=== PATIENT | male | born 1930 | race Caucasian/White ===

== ENCOUNTER 2020-05-14 16:04 | Inpatient (IN) | payer MEDICARE, OTHER ==
[~2020-05-14] VITALS: Ht 165.1 cm; Wt 67.8 kg
[2020-05-14 16:43] LABS: BASOPHILS % (AUTO) 0.3 % (0.0-5.0); EOSINOPHILS % (AUTO) 0.2 % (0.0-8.0); HEMATOCRIT 41.2 % (42-54); LYMPHOCYTES % (AUTO) 19.9 % (21.0-51.0); MEAN CORPUSCULAR HEMOGLOBIN 29.3 pg (27.0-33.0); MEAN CORPUSCULAR HGB CONC 32.5 g/dL (32.0-36.0); MONOCYTES % (AUTO) 5.8 % (3.0-13.0); NEUTROPHILS % (AUTO) 73.5 % (40.0-77.0); PLATELET COUNT (AUTO) 233 K/uL (130-400); RED BLOOD CELL COUNT(AUTO) 4.58 MIL/uL (4.50-6.20); RED CELL DISTRIBUTION WIDTH 14.3 % (11.0-15.5); WHITE BLOOD COUNT (AUTO) 5.8 K/uL (4.8-10.8)
[2020-05-14 17:03] LABS: INR 1.06 (0.85-1.15); PROTHROMBIN TIME 11.3 SEC (9.6-11.6)
[2020-05-14 17:04] LABS: PARTIAL THROMBOPLASTIN TIME 36.5 SEC (26.3-35.5)
[2020-05-14 17:10] LABS: CREATININE 2.1 mg/dL (0.5-1.5); POTASSIUM 4.7 mmol/L (3.5-5.1)
[2020-05-14 17:15] LABS: ALBUMIN 3.6 g/dL (3.5-5.0); BILIRUBIN,TOTAL 0.2 mg/dL (0.2-1.0); TOTAL PROTEIN, SERUM 7.9 g/dL (6.0-8.3)
[2020-05-14 20:28] LABS: APPEARANCE,URINE Clear (CLEAR); BILIRUBIN,URINE Negative (NEGATIVE); COLOR,URINE Yellow (YELLOW); GLUCOSE, URINE (UA) Negative (NEGATIVE); KETONES,URINE Negative (NEGATIVE); LEUKOCYTE ESTERASE ,URINE Negative (NEGATIVE); NITRATE,URINE Negative (NEGATIVE); OCCULT BLOOD,URINE Negative (NEGATIVE); PROTEIN,URINE POS 1+ mg/dL (NEGATIVE); UROBILINOGEN,URINE 0.2 mg/dL (0.2-1.0)
[2020-05-14] MEDS ORDERED: LACTATED RINGERS 1000ML 1,000 ML IV SCH (20:30)
[2020-05-14] MEDS ORDERED: LACTULOSE 20 GM/30 ML UDCUP PO PRN (20:30)
[2020-05-14] MEDS ORDERED: NITROGLYCERIN 0.4 MG SL TAB SL PRN (20:30)
[2020-05-14] MEDS ORDERED: DIPHENHYDRAMINE HCL 25 MG CAPSULE PO PRN (20:30)
[2020-05-14] MEDS ORDERED: ACETAMINOPHEN 325 MG TAB PO PRN ×2 (20:30)
[2020-05-14] MEDS ORDERED: ONDANSETRON HCL 4 MG/2 ML VIAL IV PRN (20:30)
[2020-05-14] MEDS ORDERED: MAG HYDROX/AL HYDROX/SIMETH ES 30 ML SUSP UDCUP PO PRN (20:30)
[2020-05-14] MEDS ORDERED: GUAIFENESIN-DM 200/20 MG 10 ML PO PRN (20:30)
[2020-05-14] MEDS ORDERED: CEFTRIAXONE SODIUM 1 GM IVP SCH (20:45)
[2020-05-14] MEDS ORDERED: DEXAMETHASONE SOD PHOSPHATE 4 MG/ML 1ML VIAL IVP SCH (20:45)
[2020-05-14] MEDS ORDERED: FAMOTIDINE/PF 20 MG/2 ML VIAL IV SCH (21:00)
[2020-05-14] MEDS ORDERED: DOXYCYCLINE HYCLATE 100 MG TABLET PO SCH (21:00)
[2020-05-14 21:12] LABS: BACTERIA,URINE Rare /HPF (None Seen); RBC,URINE None Seen /HPF (0-1); WBC,URINE 0-1 /HPF (0-1)
[2020-05-14 21:13] LABS: SQUAMOUS EPITHELIAL CELL,UR None Seen /HPF (0-2)
[2020-05-15] MEDS ORDERED: DOXYCYCLINE HYCLATE 100 MG TABLET PO ONE (06:05)
[2020-05-15] MEDS ORDERED: CEFTRIAXONE SODIUM 1 GM ONE (06:06)
[2020-05-15] MEDS ORDERED: DEXAMETHASONE SOD PHOSPHATE 4 MG/ML 1ML VIAL ONE (06:06)
[2020-05-15 06:15] LABS: BASOPHILS % (AUTO) 0.2 % (0.0-5.0); EOSINOPHILS % (AUTO) 0.2 % (0.0-8.0); HEMATOCRIT 37.2 % (42-54); LYMPHOCYTES % (AUTO) 18.3 % (21.0-51.0); MEAN CORPUSCULAR HEMOGLOBIN 28.9 pg (27.0-33.0); MEAN CORPUSCULAR HGB CONC 32.5 g/dL (32.0-36.0); MONOCYTES % (AUTO) 6.2 % (3.0-13.0); NEUTROPHILS % (AUTO) 74.5 % (40.0-77.0); PLATELET COUNT (AUTO) 223 K/uL (130-400); RED BLOOD CELL COUNT(AUTO) 4.18 MIL/uL (4.50-6.20); RED CELL DISTRIBUTION WIDTH 14.2 % (11.0-15.5); WHITE BLOOD COUNT (AUTO) 5.1 K/uL (4.8-10.8)
[2020-05-15 06:38] LABS: ALBUMIN 3.3 g/dL (3.5-5.0); BILIRUBIN,TOTAL 0.3 mg/dL (0.2-1.0); CREATININE 1.7 mg/dL (0.5-1.5); CRP QUANTITATIVE 83.2 mg/L (0.00-9.0); POTASSIUM 4.6 mmol/L (3.5-5.1); TOTAL PROTEIN, SERUM 7.3 g/dL (6.0-8.3)
[2020-05-15] MEDS ORDERED: FAMOTIDINE/PF 20 MG/2 ML VIAL IV ONE (08:54)
[2020-05-15] MEDS ORDERED: ENOXAPARIN SODIUM 40 MG/0.4 ML SYRINGE SQ ONE (08:54)
[2020-05-15] MEDS: ENOXAPARIN SODIUM 40 MG/0.4 ML SYRINGE SQ SCH (09:00)
[2020-05-15] MEDS: FAMOTIDINE 20MG TAB 20 MG TAB PO SCH (09:00)
[2020-05-15] MEDS ORDERED: ENOXAPARIN SODIUM 40 MG/0.4 ML SYRINGE SQ SCH (09:00)
[2020-05-15] MEDS ORDERED: PHARMACY COMMUNICATION**REMDESIVIR ORDER MISC SCH (10:45)
[2020-05-15] MEDS: ALBUTEROL INHALER 90MCG/INH IH SCH ×4 (11:00→23:00)
[2020-05-15 11:22] LABS: ALBUMIN 3.3 g/dL (3.5-5.0); BILIRUBIN,DIRECT 0.1 mg/dL (0.0-0.3); BILIRUBIN,TOTAL 0.3 mg/dL (0.2-1.0); TOTAL PROTEIN, SERUM 7.6 g/dL (6.0-8.3)
[2020-05-15] MEDS ORDERED: ALBUTEROL INHALER 90MCG/INH IH ONE (11:55)
[2020-05-15 13:36] LABS: CREATININE,URINE RANDOM 131 mg/dL (30-135); SODIUM,URINE RANDOM 52 mmol/l (40-220)
[2020-05-15] MEDS: LACTATED RINGERS 1000ML 1,000 ML IV SCH (17:00)
[2020-05-15] MEDS ORDERED: DEXAMETHASONE SOD PHOSPHATE 10MG/ML 1ML VIAL ONE (20:52)
[2020-05-16] MEDS: LACTATED RINGERS 1000ML 1,000 ML IV SCH ×2 (03:00→13:00)
[2020-05-16] MEDS: ALBUTEROL INHALER 90MCG/INH IH SCH ×6 (03:00→23:00)
[2020-05-16 06:03] LABS: HEMATOCRIT 36.8 % (42-54); LYMPHOCYTES % (AUTO) 9.7 % (21.0-51.0); MEAN CORPUSCULAR HEMOGLOBIN 28.8 pg (27.0-33.0); MEAN CORPUSCULAR HGB CONC 33.2 g/dL (32.0-36.0); MONOCYTES % (AUTO) 4.4 % (3.0-13.0); NEUTROPHILS % (AUTO) 85.6 % (40.0-77.0); PLATELET COUNT (AUTO) 237 K/uL (130-400); RED BLOOD CELL COUNT(AUTO) 4.23 MIL/uL (4.50-6.20); RED CELL DISTRIBUTION WIDTH 13.7 % (11.0-15.5); WHITE BLOOD COUNT (AUTO) 7.5 K/uL (4.8-10.8)
[2020-05-16 06:44] LABS: ALBUMIN 3.2 g/dL (3.5-5.0); BILIRUBIN,TOTAL 0.3 mg/dL (0.2-1.0); CREATININE 1.6 mg/dL (0.5-1.5); CRP QUANTITATIVE 88.6 mg/L (0.00-9.0); POTASSIUM 4.6 mmol/L (3.5-5.1); THYROID STIMULATING HORMONE 0.98 uIU/mL (0.36-3.74); TOTAL PROTEIN, SERUM 7.4 g/dL (6.0-8.3)
[2020-05-16] MEDS: PHARMACY COMMUNICATION MISC SCH ×6 (08:15→20:15)
[2020-05-16] MEDS: ENOXAPARIN SODIUM 40 MG/0.4 ML SYRINGE SQ SCH (09:00)
[2020-05-16] MEDS: FAMOTIDINE 20MG TAB 20 MG TAB PO SCH (09:00)
[2020-05-16] MEDS ORDERED: FAMOTIDINE 20MG TAB 20 MG TAB ONE (10:26)
[2020-05-16] MEDS ORDERED: ENOXAPARIN SODIUM 40 MG/0.4 ML SYRINGE SQ ONE (10:27)
[2020-05-16] MEDS ORDERED: LACTATED RINGERS 1000ML 1,000 ML IV ONE (13:09)
[2020-05-16] MEDS: DEXAMETHASONE SOD PHOSPHATE 4 MG/ML 1ML VIAL IVP SCH (20:45)
[2020-05-16] MEDS ORDERED: LORAZEPAM 2 MG/ML 1 ML VIAL ONE (21:28)
[2020-05-16] MEDS ORDERED: DEXAMETHASONE SOD PHOSPHATE 10MG/ML 1ML VIAL ONE (21:28)
[2020-05-16] MEDS ORDERED: LORAZEPAM 2 MG/ML 1 ML VIAL IVP PRN (22:00)
[2020-05-16] MEDS ORDERED: QUETIAPINE FUMARATE 25 MG TAB PO SCH (22:45)
[2020-05-16 22:53] LABS: ABG BASE EXCESS -8.3 mmol/L (-2.0-3.0); ABG HCO3 14.4 mmol/L (21.0-28.0); ABG PCO2 24 mmHg (35-48)
[2020-05-16] MEDS ORDERED: QUETIAPINE FUMARATE 100 MG TAB ONE (22:57)
[2020-05-17] MEDS: PHARMACY COMMUNICATION MISC SCH ×5 (00:15→16:15)
[2020-05-17] MEDS ORDERED: HALOPERIDOL LACTATE 5 MG/ML VIAL ONE ×2 (02:06→11:43)
[2020-05-17] MEDS ORDERED: DiphenhydrAMINE HCL 50 MG/ML VIAL ONE (02:07)
[2020-05-17] MEDS ORDERED: HALOPERIDOL LACTATE 5 MG/ML VIAL IM PRN ×2 (02:15→09:15)
[2020-05-17] MEDS: ALBUTEROL INHALER 90MCG/INH IH SCH ×5 (03:00→19:00)
[2020-05-17] MEDS: ENOXAPARIN SODIUM 40 MG/0.4 ML SYRINGE SQ SCH (08:15)
[2020-05-17] MEDS: FAMOTIDINE 20MG TAB 20 MG TAB PO SCH (08:15)
[2020-05-17 08:52] LABS: BASOPHILS % (AUTO) 0.1 % (0.0-5.0); LYMPHOCYTES % (AUTO) 5.3 % (21.0-51.0); MEAN CORPUSCULAR HEMOGLOBIN 28.3 pg (27.0-33.0); MEAN CORPUSCULAR HGB CONC 32.4 g/dL (32.0-36.0); MEAN CORPUSCULAR VOLUME 87.2 fL (79-99); MONOCYTES % (AUTO) 5.1 % (3.0-13.0); NEUTROPHILS % (AUTO) 89.2 % (40.0-77.0); PLATELET COUNT (AUTO) 283 K/uL (130-400); WHITE BLOOD COUNT (AUTO) 11.2 K/uL (4.8-10.8)
[2020-05-17] MEDS ORDERED: FERR-82 PO (08:59)
[2020-05-17] MEDS ORDERED: FLUO5DRO2 OD (08:59)
[2020-05-17] MEDS ORDERED: ROSU5TAB12 PO (08:59)
[2020-05-17 09:11] LABS: ALBUMIN 3.4 g/dL (3.5-5.0); BILIRUBIN,TOTAL 0.5 mg/dL (0.2-1.0); CREATININE 1.7 mg/dL (0.5-1.5); CRP QUANTITATIVE 92.3 mg/L (0.00-9.0); POTASSIUM 4.8 mmol/L (3.5-5.1); TOTAL PROTEIN, SERUM 7.4 g/dL (6.0-8.3)
[2020-05-17] MEDS: LACTATED RINGERS 1000ML 1,000 ML IV SCH (09:15)
[2020-05-17] MEDS ORDERED: LACTATED RINGERS 1000ML 1,000 ML IV ONE (09:21)
[2020-05-17] MEDS: DiphenhydrAMINE HCL 50 MG/ML VIAL IV PRN ×3 (09:31→23:42)
[2020-05-17 11:58] VITALS: BP 117/54
[2020-05-17] MEDS: HALOPERIDOL LACTATE 5 MG/ML VIAL IV PRN ×3 (12:42→23:45)
[2020-05-17] MEDS ORDERED: HALOPERIDOL LACTATE 5 MG/ML VIAL IM ONE (14:00)
[2020-05-17 19:00] VITALS: BP 106/68
[2020-05-17] MEDS ORDERED: LORAZEPAM 2 MG/ML 1 ML VIAL IVP PRN (20:00)
[2020-05-17] MEDS: DEXAMETHASONE SOD PHOSPHATE 4 MG/ML 1ML VIAL IVP SCH (20:45)
[2020-05-17 23:00] VITALS: BP 124/77
[2020-05-18] VITALS (7 sets, daily range): BP systolic 113–152; BP diastolic 66–98
[2020-05-18 05:17] LABS: BASOPHILS % (AUTO) 0.1 % (0.0-5.0); HEMATOCRIT 42.2 % (42-54); LYMPHOCYTES % (AUTO) 5.4 % (21.0-51.0); MEAN CORPUSCULAR HEMOGLOBIN 28.3 pg (27.0-33.0); MEAN CORPUSCULAR HGB CONC 32.5 g/dL (32.0-36.0); MEAN CORPUSCULAR VOLUME 87.2 fL (79-99); MONOCYTES % (AUTO) 3.6 % (3.0-13.0); NEUTROPHILS % (AUTO) 90.5 % (40.0-77.0); PLATELET COUNT (AUTO) 290 K/uL (130-400); RED BLOOD CELL COUNT(AUTO) 4.84 MIL/uL (4.50-6.20); RED CELL DISTRIBUTION WIDTH 14.3 % (11.0-15.5); WHITE BLOOD COUNT (AUTO) 9.7 K/uL (4.8-10.8)
[2020-05-18 05:38] LABS: ALBUMIN 3.2 g/dL (3.5-5.0); BILIRUBIN,TOTAL 0.6 mg/dL (0.2-1.0); CREATININE 1.6 mg/dL (0.5-1.5); CRP QUANTITATIVE 117.9 mg/L (0.00-9.0); POTASSIUM 4.9 mmol/L (3.5-5.1); TOTAL PROTEIN, SERUM 7.7 g/dL (6.0-8.3)
[2020-05-18] MEDS: ALBUTEROL INHALER 90MCG/INH IH SCH (07:00)
[2020-05-18] MEDS: LACTATED RINGERS 1000ML 1,000 ML IV SCH (08:00)
[2020-05-18] MEDS: ENOXAPARIN SODIUM 40 MG/0.4 ML SYRINGE SQ SCH (08:10)
[2020-05-18] MEDS: FAMOTIDINE 20MG TAB 20 MG TAB PO SCH ×2 (08:11→11:34)
[2020-05-18] MEDS: HALOPERIDOL LACTATE 5 MG/ML VIAL IV PRN ×2 (08:27→14:01)
[2020-05-18] MEDS: DEXTROSE 5%-WATER 1,000 ML IV SCH (11:00)
[2020-05-18] MEDS: DILTIAZEM HCL 125 MG/25 ML 125 MG in SODIUM CHLORIDE 0.9% 100 ML IV SCH ×2 (11:32→19:53)
[2020-05-18] MEDS: DiphenhydrAMINE HCL 50 MG/ML VIAL IV PRN (11:33)
[2020-05-18] MEDS: DEXAMETHASONE SOD PHOSPHATE 4 MG/ML 1ML VIAL IVP SCH (20:01)
[2020-05-18] MEDS ORDERED: APIXABAN 2.5 MG TABLET PO SCH (21:00)
[2020-05-19] VITALS (9 sets, daily range): BP systolic 100–135; BP diastolic 56–78
[2020-05-19] MEDS: DiphenhydrAMINE HCL 50 MG/ML VIAL IV PRN (00:35)
[2020-05-19] MEDS: DEXTROSE 5%-WATER 1,000 ML IV SCH ×2 (02:43→18:06)
[2020-05-19] MEDS: DILTIAZEM HCL 125 MG/25 ML 125 MG in SODIUM CHLORIDE 0.9% 100 ML IV SCH ×2 (05:15→13:16)
[2020-05-19 06:34] LABS: BASOPHILS % (AUTO) 0.1 % (0.0-5.0); HEMATOCRIT 44.2 % (42-54); LYMPHOCYTES % (AUTO) 5.6 % (21.0-51.0); MEAN CORPUSCULAR HEMOGLOBIN 28.5 pg (27.0-33.0); MEAN CORPUSCULAR HGB CONC 32.6 g/dL (32.0-36.0); MEAN CORPUSCULAR VOLUME 87.4 fL (79-99); NEUTROPHILS % (AUTO) 89.7 % (40.0-77.0); PLATELET COUNT (AUTO) 294 K/uL (130-400); RED BLOOD CELL COUNT(AUTO) 5.06 MIL/uL (4.50-6.20); RED CELL DISTRIBUTION WIDTH 14.6 % (11.0-15.5); WHITE BLOOD COUNT (AUTO) 10.1 K/uL (4.8-10.8)
[2020-05-19 07:13] LABS: ALBUMIN 3.3 g/dL (3.5-5.0); BILIRUBIN,TOTAL 0.9 mg/dL (0.2-1.0); POTASSIUM 4.9 mmol/L (3.5-5.1); TOTAL PROTEIN, SERUM 7.5 g/dL (6.0-8.3)
[2020-05-19] MEDS: HALOPERIDOL LACTATE 5 MG/ML VIAL IV PRN ×3 (08:41→18:05)
[2020-05-19 11:48] LABS: THYROID STIMULATING HORMONE 0.34 uIU/mL (0.36-3.74)
[2020-05-19] MEDS ORDERED: COMPOUND IV REFRIGERATED 1 EACH IVSOLN MISC PRN (12:30)
[2020-05-19] MEDS: LORAZEPAM 2 MG/ML 1 ML VIAL IVP PRN ×2 (13:14→18:06)
[2020-05-19] MEDS: DEXAMETHASONE SOD PHOSPHATE 4 MG/ML 1ML VIAL IVP SCH (19:59)
[2020-05-19] MEDS: ENOXAPARIN SODIUM 40 MG/0.4 ML SYRINGE SQ SCH (20:01)
[2020-05-20] VITALS (7 sets, daily range): BP systolic 108–130; BP diastolic 63–82
[2020-05-20] MEDS: DILTIAZEM HCL 125 MG/25 ML 125 MG in SODIUM CHLORIDE 0.9% 100 ML IV SCH (01:08)
[2020-05-20 05:09] LABS: BASOPHILS % (AUTO) 0.1 % (0.0-5.0); HEMATOCRIT 40.1 % (42-54); LYMPHOCYTES % (AUTO) 6.5 % (21.0-51.0); MEAN CORPUSCULAR HEMOGLOBIN 28.6 pg (27.0-33.0); MEAN CORPUSCULAR HGB CONC 32.4 g/dL (32.0-36.0); MEAN CORPUSCULAR VOLUME 88.1 fL (79-99); MONOCYTES % (AUTO) 3.6 % (3.0-13.0); NEUTROPHILS % (AUTO) 89.2 % (40.0-77.0); PLATELET COUNT (AUTO) 232 K/uL (130-400); RED BLOOD CELL COUNT(AUTO) 4.55 MIL/uL (4.50-6.20); RED CELL DISTRIBUTION WIDTH 14.5 % (11.0-15.5); WHITE BLOOD COUNT (AUTO) 10.7 K/uL (4.8-10.8)
[2020-05-20 05:19] LABS: THYROID STIMULATING HORMONE 0.22 uIU/mL (0.36-3.74)
[2020-05-20 05:34] LABS: ALBUMIN 2.9 g/dL (3.5-5.0); CREATININE 1.7 mg/dL (0.5-1.5); CRP QUANTITATIVE 79.6 mg/L (0.00-9.0); MAGNESIUM 2.8 mg/dL (1.80-2.40); POTASSIUM 4.8 mmol/L (3.5-5.1); TOTAL PROTEIN, SERUM 6.8 g/dL (6.0-8.3)
[2020-05-20] MEDS: DEXTROSE 5%-WATER 1,000 ML IV SCH (05:43)
[2020-05-20] MEDS: FOLIC ACID 5 MG/ML 10 ML VIAL IM SCH (09:00)
[2020-05-20] MEDS: THIAMINE HCL 100 MG/ML 2ML VIAL IVP SCH ×2 (09:00→09:26)
[2020-05-20] MEDS: FAMOTIDINE/PF 20 MG/2 ML VIAL IV SCH (09:26)
[2020-05-20] MEDS: ENOXAPARIN SODIUM 40 MG/0.4 ML SYRINGE SQ SCH ×2 (09:27→19:43)
[2020-05-20] MEDS: HYDROCHLOROTHIAZIDE 25 MG TABLET PO SCH (09:27)
[2020-05-20] MEDS ORDERED: DILTIAZEM HCL 125 MG/25 ML 125 MG in SODIUM CHLORIDE 0.9% 100 ML IV SCH ×2 (16:45→16:57)
[2020-05-20] MEDS: DEXAMETHASONE SOD PHOSPHATE 4 MG/ML 1ML VIAL IVP SCH (19:42)
[2020-05-21] MEDS: DEXTROSE 5%-WATER 1,000 ML IV SCH (03:08)
[2020-05-21 03:36] VITALS: BP 116/73
[2020-05-21 03:58] LABS: ABG BASE EXCESS -3.5 mmol/L (-2.0-3.0); ABG HCO3 19.2 mmol/L (21.0-28.0); ABG OXYGEN SATURATION 97.1 % (95.0-99.0); ABG PCO2 29 mmHg (35-48)
[2020-05-21 08:54] LABS: CREATININE 1.7 mg/dL (0.5-1.5); POTASSIUM 4.8 mmol/L (3.5-5.1)
[2020-05-21] MEDS: THIAMINE HCL 100 MG/ML 2ML VIAL IVP SCH ×2 (09:00→09:06)
[2020-05-21] MEDS: FOLIC ACID 5 MG/ML 10 ML VIAL IM SCH (09:00)
[2020-05-21] MEDS: HYDROCHLOROTHIAZIDE 25 MG TABLET PO SCH (09:00)
[2020-05-21] MEDS: FAMOTIDINE/PF 20 MG/2 ML VIAL IV SCH (09:05)
[2020-05-21] MEDS: ENOXAPARIN SODIUM 40 MG/0.4 ML SYRINGE SQ SCH (09:05)
[2020-05-21 12:39] VITALS: BP 141/76
[2020-05-21] MEDS ORDERED: DEXMEDETOMIDINE HCL 400 MCG in SODIUM CHLORIDE 0.9% 100 ML IV SCH (13:00)
[2020-05-21] MEDS ORDERED: ACETAMINOPHEN 650 MG SUPPOSITORY RC PRN (16:00)
[2020-05-21] MEDS ORDERED: ACETAMINOPHEN 325 MG TAB PO PRN (16:00)
[2020-05-21] MEDS: SCOPOLAMINE HYDROBROMIDE 1 EACH ADH..PATCH TD SCH ×2 (16:00→21:42)
[2020-05-21] MEDS ORDERED: ATROPINE SULFATE 5 ML DROPS PO PRN (16:00)
[2020-05-21] MEDS ORDERED: MORPHINE SULFATE 20MG/ML ORAL 0.25 ML PO PRN (16:00)
[2020-05-21] MEDS: MORPHINE SULFATE 2 MG/ML 1ML SYG IM PRN ×2 (17:37→21:41)
[2020-05-21] MEDS: LORAZEPAM 2 MG/ML 1 ML VIAL IVP PRN (17:37)
[2020-05-22] MEDS: MORPHINE SULFATE 2 MG/ML 1ML SYG IM PRN ×4 (01:43→10:39)
[2020-05-22] MEDS: LORAZEPAM 2 MG/ML 1 ML VIAL IVP PRN ×2 (09:45→09:46)
[2020-05-22 12:00] VITALS: BP 96/64
[2020-05-22] MEDS ORDERED: MORPHINE SULFATE 2 MG/ML 1ML SYG IV PRN (14:00)
== END 2020-05-22 17:45 | disposition expired | DRG 177 ==
LOC: EDH 16:04 → EDHIP 20:19 → 2AH 05-17 03:37
PROVIDERS: ADMIT Family Medicine; ATTEND Family Medicine
PROC: XW13325 Transfusion of Convalescent Plasma (Nonautologous) into Peripheral Vein, Percutaneous Approach, New Technology Group 5 (ICD-10-PCS; principal; 2020-05-15)
PROC: 5A0935A Assistance with Respiratory Ventilation, Less than 24 Consecutive Hours, High Flow/Velocity Cannula (ICD-10-PCS; 2020-05-19)
PROC: 5A0935A Assistance with Respiratory Ventilation, Less than 24 Consecutive Hours, High Flow/Velocity Cannula (ICD-10-PCS; 2020-05-20)
PROC: 5A09357 Assistance with Respiratory Ventilation, Less than 24 Consecutive Hours, Continuous Positive Airway Pressure (ICD-10-PCS; 2020-05-21)
DX: U07.1 COVID-19 (principal); J96.01 Acute respiratory failure with hypoxia; J12.82 Pneumonia due to coronavirus disease 2019; N17.9 Acute kidney failure, unspecified; D68.59 Other primary thrombophilia; E87.0 Hyperosmolality and hypernatremia; E46 Unspecified protein-calorie malnutrition; F05 Delirium due to known physiological condition; E87.1 Hypo-osmolality and hyponatremia; A08.39 Other viral enteritis; N18.9 Chronic kidney disease, unspecified; J43.9 Emphysema, unspecified; I12.9 Hypertensive chronic kidney disease with stage 1 through stage 4 chronic kidney disease, or unspecified chronic kidney disease; E11.22 Type 2 diabetes mellitus with diabetic chronic kidney disease; Z68.24 Body mass index [BMI] 24.0-24.9, adult; E78.5 Hyperlipidemia, unspecified; E86.0 Dehydration; E86.1 Hypovolemia; I25.10 Atherosclerotic heart disease of native coronary artery without angina pectoris; I48.91 Unspecified atrial fibrillation; R62.7 Adult failure to thrive; Z66 Do not resuscitate; Z87.891 Personal history of nicotine dependence; Z79.01 Long term (current) use of anticoagulants; Z87.01 Personal history of pneumonia (recurrent)
CPT/HCPCS: 36415; 36600; 71045; 71250; 74018; 74176; 80048; 80053; 80076; 81001; 82140; 82306; 82550; 82570; 82728; 82803; 82948; 83605; 83615; 83690; 83735; 84145; 84300; 84439; 84443; 84484; 85025; 85378; 85610; 85730; 86140; 86900; 86901; 86927; 87177; 87426; 87507; 93005; 94660; 94760; A4606; G0378; J0696; J1100; J1200; J1630; J1650; J2060; J3411; J3490; J7070; J7120